=== PATIENT | male | born 1950 | race Caucasian/White ===

== ENCOUNTER 2016-09-27 08:38 | Emergency (ER) | payer OTHER ==
[~2016-09-27] VITALS: Ht 175.3 cm; Wt 109.3 kg
[~2016-09-27 08:38] MED LIST: COZAAR100 MG PO; CRESTOR10 MG PO; NORVASC10 MG PO; TENORMIN50 MG PO
[2016-09-27] MEDS ORDERED: DOXAZOSIN MESYLA4 MG PO (09:07)
[2016-09-27] MEDS ORDERED: VERAPAMIL HCL240 MG PO (09:07)
[2016-09-27] MEDS ORDERED: COMBIGAN O20 DROP/5 BOTH EYES (09:08)
[2016-09-27] MEDS ORDERED: BENADRYL25 MG PO (10:27)
[2016-09-27] MEDS ORDERED: PREDNISONE50 MG PO (10:27)
[2016-09-27] MEDS ORDERED: ZANTAC150 MG PO (10:27)
[2016-09-27 10:54] VITALS: BP 138/77
== END 2016-09-27 11:06 | disposition home or self-care (01) ==
LOC: EME 08:38
DX: T78.40XA Allergy, unspecified, initial encounter (principal); T36.0X5A Adverse effect of penicillins, initial encounter; L50.0 Allergic urticaria; I10 Essential (primary) hypertension; E78.5 Hyperlipidemia, unspecified; Z88.1 Allergy status to other antibiotic agents; Z88.0 Allergy status to penicillin
CPT/HCPCS: 99281; 99285; J1100; J1200; S0028

== ENCOUNTER → 2016-12-17 | Outpatient (CLI) | payer MEDICARE, OTHER ==
[~2016-12-17] MED LIST changes: +BENADRYL25 MG PO; +COMBIGAN O20 DROP/5 BOTH EYES; +DOXAZOSIN MESYLA4 MG PO; +PREDNISONE50 MG PO; +VERAPAMIL HCL240 MG PO; +ZANTAC150 MG PO
== END | disposition home or self-care (01) ==
LOC: CDC 11:54
DX: I45.10 Unspecified right bundle-branch block (principal); I10 Essential (primary) hypertension
CPT/HCPCS: 93000